=== PATIENT | male | born 1950 | race African-American/Black ===

== ENCOUNTER 2019-06-04 07:43 | Outpatient (CLI) | payer OTHER ==
[2019-06-04 10:36] LABS: Bacteria/HPF None Seen HPF (None Seen); Bilirubin Negative (Negative); Blood, Urine Trace (Negative); Clarity Clear (Clear); Glucose, Urine (Dipstick) Normal (Negative); Leukocyte Negative Leu/uL (Negative); Nitrite Negative (Negative); Protein, Urine (Dipstick) 30 mg/dL (Neg-Trace); Squamous Epithelial 0-3 HPF (0-3); Urobilinogen Normal mg/dL (Less than 2); WBC/HPF 0-3 HPF (0-3)
[2019-06-04 10:47] LABS: Prothrombin Time 13.1 SEC (12.0-14.7)
[2019-06-04 10:49] LABS: #Eosinphils 0.1 thou/uL (0.0-0.7); #Lymphocytes 2.4 thou/uL (1.20-3.40); #Monocytes 0.6 thou/uL (0.11-0.59); #Neutrophils 3.2 thou/uL (1.40-6.50); %Lymphocytes 38.4 % (21.0-51.0); %Neutrophils 50.6 % (42.0-75.0); Hemoglobin 14.5 g/dL (14.0-18.0); Mean Corpuscular Hemoglobin 30.2 pg (27.0-31.0); Mean Corpuscular Volume 94.3 fL (78.0-98.0); Mean Platelet Volume 9.5 fL (7.4-10.4); Platelet Count 126 thou/uL (130-400); RBC Distribution Width 12.4 % (11.5-14.5); Red Blood Cell (RBC) Count 4.79 mill/uL (4.70-6.10); White Blood Cell (WBC) Count 6.2 thou/uL (4.8-10.8)
[2019-06-04 10:55] LABS: Anion Gap 12 mmol/L (10-20); BUN (Urea Nitrogen) 13 mg/dL (8.4-25.7); Calc. Creatinine Clearance 0 mL/min (70-130); Calcium 9.1 mg/dL (7.8-10.44); Carbon Dioxide 28 mmol/L (23-31); Chloride 102 mmol/L (98-107); Estimated GFR-MDRD 64; Glucose 91 mg/dL (80-115); Potassium 3.9 mmol/L (3.5-5.1); Sodium 138 mmol/L (136-145)
--- NOTE | 2019-06-04 16:52 | EKG ---
Test Reason : Blood Pressure : / mmHG Vent. Rate : 073 BPM Atrial Rate : 073 BPM P-R Int : 124 ms QRS Dur : 086 ms QT Int : 358 ms P-R-T Axes : 067 068 -08 degrees QTc Int : 394 ms Normal sinus rhythm Possible Anterior infarct , age undetermined Nonspecific ST-T changes Abnormal ECG When compared with ECG of 03-JUL-2000 13:28, T wave inversion no longer evident in Lateral leads Confirmed by DR. León SCHILLING (3) on 06/04/2019 4:52:04 PM Referred By: ELIASRO Confirmed By:DR. León SCHILLING
== END 2019-06-04 07:44 | disposition home or self-care (01) ==
LOC: LABBT 07:43
PROVIDERS: ATTEND Orthopaedic Surgery
DX: Z01.818 Encounter for other preprocedural examination (principal); M17.0 Bilateral primary osteoarthritis of knee
CPT/HCPCS: 80048; 81001; 85025; 85610; 87081; 93005; 93010

== ENCOUNTER 2019-06-15 05:30 | Day surgery (SDC) | payer OTHER ==
[2019-06-15] MEDS ORDERED: Tranexamic Acid 1,000 MG/10 ML VIAL ONE (05:58)
[2019-06-15] MEDS ORDERED: Vancomycin 1.5 GRAM/300 ML BAG 1.5 GM/300 ML BAG ONE (05:58)
[2019-06-15] MEDS ORDERED: Sodium Chloride 0.9% 100 ML ONE (05:58)
[2019-06-15] MEDS ORDERED: Fentanyl 100 MCG/2 ML VIAL ONE ×3 (06:10→09:33)
[2019-06-15] MEDS ORDERED: Lidocaine 1% (PF) 30 ML VIAL ONE ×2 (06:25→06:35)
[2019-06-15] MEDS ORDERED: Midazolam HCl 2 mg/2 ml Vial ONE (06:26)
[2019-06-15] MEDS ORDERED: EPINEPHrine 1 MG/ML AMP ONE (06:27)
[2019-06-15] MEDS ORDERED: EPINEPHrine 1 MG/10 ML Abboject SYRINGE ONE (06:27)
[2019-06-15] MEDS ORDERED: Ondansetron HCl/PF 4 MG/2 ML Vial IVP PRN (06:31)
[2019-06-15] MEDS ORDERED: PACU-Morphine 4MG/ML VIAL SLOW IVP PRN (06:31)
[2019-06-15] MEDS ORDERED: Promethazine HCl 25 MG/ML VIAL IM PRN ×3 (06:31→09:09)
[2019-06-15] MEDS ORDERED: Meperidine HCl/PF 25 MG/ML VIAL SLOW IVP PRN (06:31)
[2019-06-15] MEDS ORDERED: Promethazine HCl 25 MG/ML VIAL SLOW IVP PRN (06:31)
[2019-06-15] MEDS ORDERED: Morphine Sulfate 2 MG/ML SYRINGE SLOW IVP PRN (06:31)
[2019-06-15] MEDS ORDERED: HYDROmorphone 2 MG/ML VIAL SLOW IVP PRN (06:31)
[2019-06-15] MEDS ORDERED: Bupivacaine PF 0.5% 30 ML VIAL ONE (06:35)
[2019-06-15] MEDS ORDERED: methylPREDNISolone Acetate 40 mg/ml Vial ONE (06:35)
[2019-06-15] MEDS ORDERED: HYDROcodone/Acetaminophen 10/325 mg Tablet PO PRN (06:57)
[2019-06-15] MEDS ORDERED: Zolpidem Tartrate 5 MG TAB PO PRN ×2 (06:57→09:09)
[2019-06-15] MEDS ORDERED: Ondansetron PF 4 MG/2 ML Vial IVP PRN ×2 (06:57→09:09)
[2019-06-15] MEDS ORDERED: Ketorolac Tromethamine 30 MG/ML VIAL IVP PRN (06:57)
[2019-06-15] MEDS ORDERED: Acetaminophen 325 MG TAB PO PRN ×2 (06:57→09:09)
[2019-06-15] MEDS ORDERED: traMADol HCl 50 MG TAB PO PRN ×2 (06:57)
[2019-06-15] MEDS ORDERED: Ropivacaine HCl/PF 250 ML in Premix Bag 1 BAG NERVE BLCK SCH (06:57)
[2019-06-15] MEDS ORDERED: Fentanyl 100 MCG/2 ML VIAL IV PRN (06:58)
[2019-06-15] MEDS ORDERED: diphenhydrAMINE 25 MG CAP PO PRN (09:09)
[2019-06-15] MEDS ORDERED: Pseudoephedrine HCl 30 MG TAB PO PRN (09:11)
[2019-06-15] MEDS ORDERED: Furosemide 20 MG TAB PO PRN (09:11)
[2019-06-15] MEDS ORDERED: Tranexamic Acid 1,000 MG in Sodium Chloride 0.9% 100 ML IVPB SCH (09:15)
[2019-06-15 10:43] VITALS: BMI 30.2
[2019-06-15] MEDS ORDERED: Ondansetron PF 4 MG/2 ML Vial ONE (11:10)
[2019-06-15] MEDS ORDERED: Lidocaine 1% PF 5 ML VIAL ONE (11:10)
[2019-06-15] MEDS ORDERED: EPHEDRINE 25 MG/5 ML SYRINGE ONE (11:10)
[2019-06-15] MEDS ORDERED: Succinylcholine Chloride 20 MG/ML 10 ml SYRINGE FS ONE (11:10)
[2019-06-15] MEDS ORDERED: Dexamethasone 20 MG/5 ML VIAL ONE (11:10)
[2019-06-15] MEDS ORDERED: PROPOFOL 200 MG/20 ML VIAL ONE (11:10)
[2019-06-15] MEDS ORDERED: Ropivacaine 0.5% HCl/PF (150 MG/30 ML VIAL) ONE (11:10)
[2019-06-15] MEDS ORDERED: EPINEPHrine 1 mg/ml MDV (1ml Charge) ONE (11:10)
[2019-06-15] MEDS ORDERED: PHENYLEPHRINE-NS 100 MCG/ML 10 ML SYRINGE ONE (11:10)
[2019-06-15] MEDS ORDERED: Ropivacaine 0.2% HCl/PF (40 MG/20 ML VIAL) ONE (11:10)
[2019-06-15] MEDS: Sodium Chloride 0.9% 1,000 ML IV SCH ×2 (11:23→21:14)
[2019-06-15 13:13] LABS: Bacteria/HPF None Seen HPF (None Seen); Bilirubin Negative (Negative); Blood, Urine Negative (Negative); Clarity Clear (Clear); Glucose, Urine (Dipstick) 30 mg/dL (Negative); Leukocyte Negative Leu/uL (Negative); Nitrite Negative (Negative); Protein, Urine (Dipstick) 30 mg/dL (Neg-Trace); RBC/HPF 0-3 HPF (0-3); Squamous Epithelial 0-3 HPF (0-3); Urobilinogen Normal mg/dL (Less than 2); WBC/HPF 0-3 HPF (0-3)
[2019-06-15 13:15] LABS: Urine Culture Reflex No No
[2019-06-15] MEDS: CEFAZOLIN 2 GM in Premix Bag 1 BAG IVPB SCH ×2 (14:45→21:27)
[2019-06-15] MEDS ORDERED: hydrALAZINE 25 MG TAB PO PRN (17:04)
[2019-06-15] MEDS ORDERED: Vancomycin HCl 1.5 GM in Sodium Chloride 0.9% 250 ML 300 ML IVPB SCH (20:00)
[2019-06-15] MEDS: Aspirin 81 mg Enteric Coated Tablet PO SCH (21:25)
[2019-06-15] MEDS: Gabapentin 300 MG CAP PO SCH (21:26)
--- NOTE | 2019-06-16 00:06 | CON ---
DATE OF CONSULTATION: PRIMARY CARE PHYSICIAN: Dr. Mohsen Montenegro, phone number is [phone]. He also sees Dr. Caal at the [facility]. REASON FOR CONSULTATION: Medical management. HISTORY OF PRESENT ILLNESS: Mr. Contreras is a pleasant 68-year-old gentleman, who is being admitted for an elective left total knee replacement. The patient has failed conservative measures. I am seeing the patient postop and he is sitting up in the bed, eating and has essentially no complaints. He says his knee was hurting a little bit earlier, but has since improved. He denies any chest pain or shortness of breath. No PND. No orthopnea. He has not felt dizzy, lightheaded. No nausea. No vomiting. Otherwise essentially no complaints. REVIEW OF SYSTEMS: All systems were reviewed and are negative except for that mentioned in the history of present illness. PAST MEDICAL HISTORY: Significant for hypertension and prediabetes as well as osteoarthritis. PAST SURGICAL HISTORY: He has had a right knee arthroscopic surgery in 2007 and also had arthroscopic surgery in the left knee in 1999. ALLERGIES: NO KNOWN DRUG ALLERGIES. SOCIAL HISTORY: He is , has 3 children and 24 grandchildren. He smokes about 1 to 2 cigarettes daily for the last 40 years. Denies any alcohol use. FAMILY HISTORY: Significant for hypertension in his father. CURRENT MEDICATIONS: Include; 1. Flomax 0.4 mg daily. 2. Sudafed p.r.n. 3. Paroxetine 20 mg daily. 4. Hydrochlorothiazide 25 mg daily. 5. Gabapentin 600 mg twice a day. 6. Furosemide 20 mg daily. 7. Vitamin D3 of 2000 units daily. 8. Aspirin 81 mg a day. PHYSICAL EXAMINATION: GENERAL: He is alert and oriented. He appears to be in no acute distress. VITAL SIGNS: Blood pressure was 128/85, heart rate 76, respiratory rate of 20, temperature is 98.0. HEENT: Pupils are equal, round, and reactive. Extraocular muscles are intact. His sclerae anicteric. Throat, there is no erythema, no exudates. NECK: No adenopathy. No bruits. LUNGS: Clear to auscultation. There is no wheezing, no rales, no rhonchi. CARDIOVASCULAR: He has a normal S1 and S2. There is no S3 or S4. No murmurs, clicks, or rubs. ABDOMEN: Soft, nontender, and nondistended. Positive for bowel sounds. No rebound. No guarding. No organomegaly. EXTREMITIES: There is no edema. The left leg is currently wrapped. SKIN AND INTEGUMENT: No significant skin changes. No rash. He had a urinalysis that was reviewed, which was essentially negative. LABORATORY DATA: He had lab work done on 06/04, which was also reviewed and other than a slightly elevated creatinine of 1.34 and his platelet count was slightly low at 126, the rest of it appeared negative. ASSESSMENT: This is a pleasant 68-year-old gentleman, who is being admitted for an elective left total knee replacement. The patient is currently postop and has essentially no complaints. All of his vital signs are within the normal limits. With regard to his hypertension, this appears to be well controlled and agree with restarting hydrochlorothiazide as has already been done. We will also offer p.r.n. hydralazine as needed. Prediabetes, this appears to be generally controlled and no inpatient recommendations at this time and continue PT and OT and we will be happy to follow along with you. Job ID: [id number]
[2019-06-16] MEDS: Sodium Chloride 0.9% 1,000 ML IV SCH ×3 (04:23→21:39)
[2019-06-16 05:19] LABS: Hemoglobin 11.5 g/dL (14.0-18.0); Mean Corpuscular HGB CONC 31.9 g/dL (32.0-36.0); Mean Corpuscular Hemoglobin 29.5 pg (27.0-31.0); Mean Corpuscular Volume 92.5 fL (78.0-98.0); Mean Platelet Volume 8.8 fL (7.4-10.4); Platelet Count 193 thou/uL (130-400); RBC Distribution Width 12.3 % (11.5-14.5); White Blood Cell (WBC) Count 20.8 thou/uL (4.8-10.8)
--- NOTE | 2019-06-16 07:00 | OP ---
DATE OF PROCEDURE: 06/15/2019 PREOPERATIVE DIAGNOSIS: Bilateral knee arthritis, left worse than right. POSTOPERATIVE DIAGNOSIS: Bilateral knee arthritis, left worse than right. PROCEDURES PERFORMED: 1. Left total knee replacement using [place] pinless navigation. 2. Right knee corticosteroid injection. [employer] MANAGER: Shayan Jacobs PA-C ESTIMATED BLOOD LOSS: Minimal. COMPLICATIONS: None. ANESTHESIA: He had general anesthetic. He also had a preoperative block to the left leg. IMPLANTS: On the left knee, [employer] Triathlon total knee system. The femur was a size 6 left cruciate-retaining femur. We used a size 6 left primary tibial baseplate. We used a 6 x 11 mm CS X3 tibial poly and an asymmetric 29 x 9 X3 patella. DISPOSITION: He did go to recovery room in stable condition. INDICATIONS: Brandon is a 68-year-old male, who has bilateral knee pain that has become severe on a daily basis. Unfortunately, he has failed all nonoperative treatment for this. At this time, he wished to have the left knee replaced and at the same time have the right knee injected. DESCRIPTION OF PROCEDURE: After all appropriate consent forms were explained and signed, he was taken back to the operating room and at this time was given a general anesthetic. Once the level of anesthesia was appropriate, the right knee was cleaned off with alcohol and 80 mg of Depo-Medrol with local was injected into the right knee without complication. A Band-Aid was applied. We then turned our attention to the left leg. After all appropriate consent forms were explained and signed, the patient was taken back to the operating room and at this time was given general anesthetic. Once the level of anesthesia was appropriate, a well-padded tourniquet was placed on the left leg, and the leg was then prepped and draped in standard surgical fashion. The limb was exsanguinated and tourniquet taken up to 300 mmHg. Midline incision was made with a 10 blade down through the skin and subcutaneous tissue. Bovie electrocautery was used to coagulate any brisk venous bleeding. A new blade was used to make a medial parapatellar arthrotomy. Small subperiosteal release was performed medially and excess fat pad was removed. The knee was flexed up to gain access to the femur. The femur was navigated and distal femoral resection was made. Epicondylar access was used to align our sizing jig and this was pinned in place. We sized our femur to be a size 6 left cruciate-retaining femur. 4:1 cutting block was applied and pinned. Anterior and posterior chamfer cuts were then made. We navigated out our proximal tibia and made our proximal tibial resection. Spreaders were used to remove any posterior osteophytes off the back of the femur as well as remaining meniscal tissue. A long alignment rusty was then used to achieve correct rotation of our tibial baseplate and We used a size 6 left primary tibial baseplate was chosen. This was pinned in place. We trialed the polyethylene and a We used a 6 x 11 mm CS X3 tibial poly gave us full extension and good stability throughout range of motion. Two towel clips and a saw were used to cut our patella. Three lug nuts were drilled and an asymmetric 29 x 9 X3 patella was trialed which sat nicely in the trochlear groove. We then drilled our femur and punched our tibia. All components were removed. The knee was thoroughly irrigated and dried. Cement was mixed into the cement gun on the back table. Components were then placed. The knee was held out in full extension until the cement had dried. All excess bone cement was removed. Multiple #2 Vicryl stitches as well as a Quill were used to close our extensor mechanism. 0 Quill followed by a running Monoderm was then used to close the skin. Surgicel glue was then used on the skin. Once this had dried, soft tissue dressing was applied to the limb, tourniquet was let down, and the toes pinked up nicely. The patient was then awakened and taken to the recovery room in stable condition. All counts were correct at the end of the case. The patient did receive preoperative IV antibiotics. The patient was injected with Marcaine for postoperative pain relief. Job ID: [id number]
[2019-06-16] MEDS: HYDROcodone/Acetaminophen 10/325 mg Tablet PO PRN ×4 (08:19→22:34)
[2019-06-16] MEDS: Hydrochlorothiazide 25 MG TAB PO SCH (08:20)
[2019-06-16] MEDS: Aspirin 81 mg Enteric Coated Tablet PO SCH ×2 (08:20→20:16)
[2019-06-16] MEDS: Multivitamin W/ Minerals 1 TAB PO SCH (08:20)
[2019-06-16] MEDS: Ferrous Gluconate 324 MG TAB PO SCH ×2 (08:20→18:24)
[2019-06-16] MEDS: Tamsulosin HCl 0.4 MG CAP PO SCH (08:20)
[2019-06-16] MEDS: PARoxetine 20 MG TAB PO SCH (08:21)
[2019-06-16] MEDS: Gabapentin 300 MG CAP PO SCH ×2 (08:21→20:16)
[2019-06-16] MEDS: Senokot S 8.6-50 MG TAB PO SCH ×2 (08:21→20:15)
--- NOTE | 2019-06-16 10:41 | PRG ---
DATE OF SERVICE: 06/16/2019 SUBJECTIVE: Brandon is a 68-year-old male postop day 1 from a left total knee arthroplasty. He is doing relatively well. His pain is controlled. He is up ambulating greater than 100 feet. OBJECTIVE: VITAL SIGNS: Temperature 97, pulse 75, respiratory rate 18 and nonlabored, and blood pressure is 129/71. GENERAL: He is alert and oriented to person, place, time, and situation. Responsive and appropriate with examiner. EXTREMITIES: His incision is clean, no strike through, and he is neurovascularly intact in the left lower extremity. No strike through or erythema is identified. LABORATORY STUDIES: Hemoglobin and hematocrit 11.5 and 36.1. IMPRESSION: A 68-year-old male postop day 1 left total knee arthroplasty, doing well. PLAN: Continue current care. Probable discharge to home tomorrow. Job ID: [id number]
--- NOTE | 2019-06-16 16:51 | PDOC.HOSPP ---
- Subjective Encounter Date: 06/16/19 Encounter Time: 16:50 Subjective: Mr. Contreras was seen today in follow-up post left total knee replacement. He notes some pain in his knee after he got up for physical therapy. He denies any chest pain or difficulty breathing. - Objective Vital Signs & Weight: Vital Signs (12 hours) Temp Pulse Resp BP Pulse Ox 06/16/19 15:05 98.1 F 80 18 155/71 H 97 06/16/19 12:00 97.7 F 81 18 124/71 98 06/16/19 08:00 98 06/16/19 07:05 98.7 F 75 18 129/71 98 Weight Admit Weight 217 lb Weight 217 lb I&O: 06/15/19 06/16/19 06/17/19 06:59 06:59 06:59 Intake Total 2160 Output Total 1300 Balance 860 Result Diagrams: 06/16/19 04:55 Hospitalist ROS - Medication Medications: Active Medications Generic Name Dose Route Start Last Admin Trade Name Freq PRN Reason Stop Dose Admin Hydrocodone Bitart/Acetaminophen 2 tab 06/15/19 06:57 06/16/19 14:04 [place] 10/325 PO 2 tab Q4H PRN Administration PAIN (4-6) Aspirin 81 mg 06/15/19 21:00 06/16/19 08:20 Ecotrin PO 81 mg BID SHON Administration Cholecalciferol 2,000 units 06/16/19 09:00 06/16/19 08:20 Vitamin D3 PO 2,000 units DAILY SHON Administration Fentanyl 50 mcg 06/15/19 06:58 06/16/19 15:24 Sublimaze IV 50 mcg Q1H PRN Administration Breakthrough pain Ferrous Gluconate 324 mg 06/16/19 08:00 06/16/19 08:20 Fergon PO 324 mg BID-WM SHON Administration Gabapentin 600 mg 06/15/19 21:00 06/16/19 08:21 Neurontin PO 600 mg BID SHON Administration Hydrochlorothiazide 25 mg 06/16/19 09:00 06/16/19 08:20 Hydrochlorothiazide PO 25 mg DAILY SHON Administration Ropivacaine 250 ml/ Device 250 mls @ 10 mls/hr 06/15/19 06:57 06/16/19 10:27 NERVE BLCK 06/18/19 06:56 250 mls INF SHON Administration Sodium Chloride 1,000 mls @ 100 mls/hr 06/15/19 09:15 06/16/19 16:42 Normal Saline 0.9% IV Not Given .Q10H SHON Iron/Minerals/Multivitamins 1 tab 06/16/19 09:00 06/16/19 08:20 Theragran M PO 1 tab DAILY SHON Administration Ketorolac Tromethamine 15 mg 06/15/19 06:57 06/15/19 11:21 Toradol IVP 06/18/19 06:58 15 mg Q6H PRN Administration Moderate Pain (4-6) Paroxetine HCl 20 mg 06/16/19 09:00 06/16/19 08:21 Paxil PO 20 mg DAILY SHON Administration Senna/Docusate Sodium 2 tab 06/16/19 09:00 06/16/19 08:21 Senokot S PO 2 tab BID SHON Administration Tamsulosin HCl 0.4 mg 06/16/19 09:00 06/16/19 08:20 Flomax PO 0.4 mg DAILY SHON Administration - Exam Eye: PERRL, anicteric sclera Heart: RRR, no murmur, no gallops, no rubs, normal peripheral pulses Respiratory: CTAB, no wheezes, no rales, no ronchi, normal chest expansion, no tachypnea, normal percussion Gastrointestinal: soft, non-tender, non-distended, normal bowel sounds, no palpable masses Extremities: no cyanosis, no edema Hosp A/P (1) Hypertension Code(s): I10 - ESSENTIAL (PRIMARY) HYPERTENSION Status: Acute (2) Status post total left knee replacement Code(s): Z96.652 - PRESENCE OF LEFT ARTIFICIAL KNEE JOINT Status: Acute - Plan * Hypertension- blood pressure is controlled * Total knee replacement- stable- continue symptom management and PT/OT as per Orthopedics
[2019-06-17] MEDS: HYDROcodone/Acetaminophen 10/325 mg Tablet PO PRN ×3 (02:28→11:22)
[2019-06-17 05:49] LABS: Hemoglobin 11.4 g/dL (14.0-18.0); Mean Corpuscular HGB CONC 32.5 g/dL (32.0-36.0); Mean Corpuscular Hemoglobin 30.1 pg (27.0-31.0); Mean Corpuscular Volume 92.5 fL (78.0-98.0); Platelet Count 174 thou/uL (130-400); RBC Distribution Width 12.5 % (11.5-14.5); Red Blood Cell (RBC) Count 3.79 mill/uL (4.70-6.10); White Blood Cell (WBC) Count 15.5 thou/uL (4.8-10.8)
[2019-06-17] MEDS: Tamsulosin HCl 0.4 MG CAP PO SCH (09:30)
[2019-06-17] MEDS: Gabapentin 300 MG CAP PO SCH (09:30)
[2019-06-17] MEDS: PARoxetine 20 MG TAB PO SCH (09:30)
[2019-06-17] MEDS: Senokot S 8.6-50 MG TAB PO SCH (09:30)
[2019-06-17] MEDS: Multivitamin W/ Minerals 1 TAB PO SCH (09:30)
[2019-06-17] MEDS: Ferrous Gluconate 324 MG TAB PO SCH (09:30)
[2019-06-17] MEDS: Hydrochlorothiazide 25 MG TAB PO SCH (09:30)
[2019-06-17] MEDS: Aspirin 81 mg Enteric Coated Tablet PO SCH (09:30)
[2019-06-17 12:00] VITALS: BP 152/85; TEMP 99.5
== END 2019-06-17 14:30 | disposition home or self-care (01) ==
LOC: SDC 05:30 → SJJU 10:28 → SDC 06-17 14:30
PROVIDERS: ATTEND Orthopaedic Surgery
PROC: 3E0U33Z Introduction of Anti-inflammatory into Joints, Percutaneous Approach (ICD-10-PCS; principal; 2019-06-17)
PROC: 0SRD0JZ Replacement of Left Knee Joint with Synthetic Substitute, Open Approach (ICD-10-PCS; principal; 2019-06-17)
PROC: 8E0YXBZ Computer Assisted Procedure of Lower Extremity (ICD-10-PCS; principal; 2019-06-17)
DX: M17.12 Unilateral primary osteoarthritis, left knee (principal); M17.11 Unilateral primary osteoarthritis, right knee; I10 Essential (primary) hypertension; F17.210 Nicotine dependence, cigarettes, uncomplicated; R73.03 Prediabetes; Z79.899 Other long term (current) drug therapy; Z79.82 Long term (current) use of aspirin
CPT/HCPCS: 36415; 81001; 85027; C1713; C1776; J0171; J0690; J1030; J1100; J1885; J2001; J2250; J2405; J2704; J2795; J3010; J3370; J3490; J7050; S0020